=== PATIENT | male | born 1990 | race Native Hawaiian/Other Pacific Islander ===

== ENCOUNTER 2020-10-26 22:23 | Emergency (ER) | payer OTHER ==
[~2020-10-26] VITALS: Ht 177.8 cm; Wt 70.8 kg
[2020-10-27 00:58] LABS: PLATELET COUNT 240 K/uL (142-355)
[2020-10-27 02:07] VITALS: BP 104/62; TEMP 98.7
== END 2020-10-27 02:07 | disposition home or self-care (01) ==
LOC: ED 22:23
PROVIDERS: Emergency Medicine Emergency Medical Services
DX: G56.03 Carpal tunnel syndrome, bilateral upper limbs (principal)
CPT/HCPCS: 36415; 80053; 84443; 85027; 99283